=== PATIENT | female | born 1995 | race American Indian/Alaskan Native ===

== ENCOUNTER 2017-02-16 10:57 | Emergency (ER) | payer BC ==
[2017-02-16 11:10] VITALS: BP 128/68; PULSE 75; RESP 18; TEMP 97.8; O2SAT 100
--- NOTE | 2017-02-16 11:49 | ED PDOC ---
HPI: General Adult Time Seen by Provider: 02/16/17 11:13 Chief Complaint (Nursing): Weakness/Neurological Deficit Chief Complaint (Provider): left facial pain swelling History Per: Patient History/Exam Limitations: no limitations Current Symptoms Are (Timing): Still Present Severity: Moderate Additional Complaint(s): 21yo female c/o awakening w left facial pain and swelling this morning, denies dental pain, neck pain, fever or headache. Also notes right arm numbness happening intermittently for many months, denies weakness, change in vision, speech, swallowing or coordination. Works as a mergers and acquisitions banker. Past Medical History Reviewed: Historical Data, Nursing Documentation, Vital Signs Vital Signs: Last Vital Signs Temp 97.8 F 02/16/17 11:09 Pulse 75 02/16/17 11:09 Resp 18 02/16/17 11:09 BP 128/68 02/16/17 11:09 Pulse Ox 100 02/16/17 11:49 - Medical History PMH: No Chronic Diseases - Surgical History Surgical History: No Surg Hx - Family History Family History: States: Unknown Family Hx - Living Arrangements Living Arrangements: With Family - Social History Current smoker - smoking cessation education provided: No Drugs: Denies - Home Medications Home Medications: Ambulatory Orders Medication Instructions Recorded Clindamycin [Cleocin] 150 mg PO TID #21 cap 02/16/17 traMADol [Ultram] 50 mg PO TID PRN #12 tab 02/16/17 - Allergies Allergies/Adverse Reactions: Allergies Allergy/AdvReac Type Severity Reaction Status Date / Time shellfish derived Allergy RASH Verified 02/16/17 11:20 Review of Systems ROS Statement: Except As Marked, All Systems Reviewed And Found Negative Constitutional: Negative for: Fever, Chills ENT: Positive for: Other (facial pain). Negative for: Ear Pain, Nose Pain, Nose Discharge, Nose Congestion, Mouth Pain, Mouth Swelling, Throat Pain, Throat Swelling Cardiovascular: Negative for: Chest Pain, Palpitations Respiratory: Negative for: Cough, Shortness of Breath Gastrointestinal: Negative for: Nausea, Vomiting Genitourinary Female: Negative for: Dysuria, Frequency Musculoskeletal: Negative for: Neck Pain Neurological: Positive for: Numbness. Negative for: Weakness, Headache, Dizziness Psych: Negative for: Anxiety Physical Exam - Reviewed Nursing Documentation Reviewed: Yes Vital Signs Reviewed: Yes - Physical Exam Appears: Positive for: Well, Non-toxic, No Acute Distress Head Exam: Positive for: ATRAUMATIC, NORMAL INSPECTION, NORMOCEPHALIC Skin: Positive for: Normal Color, Warm, DRY Eye Exam: Positive for: EOMI, Normal appearance, PERRL ENT: Positive for: Normal ENT Inspection, Other (+facial tenderness mild edema L greater zygomatic area; teeth mild scattered decay no gingival edema or pustulence) Neck: Positive for: Normal, Painless ROM Cardiovascular/Chest: Positive for: Regular Rate, Rhythm Respiratory: Positive for: CNT, Normal Breath Sounds Gastrointestinal/Abdominal: Positive for: Normal Exam, Bowel Sounds, Soft. Negative for: Tenderness, Guarding Back: Positive for: Normal Inspection Extremity: Positive for: Normal ROM Neurologic/Psych: Positive for: Alert, community organization worker II-XII (intact), Oriented, Other (R arm sensation and strength grossly intact and symmetric to L side. gait normal. Speech fluent without dysarthria. Swallowing normal.). Negative for: Motor/Sensory Deficits - Laboratory Results Result Diagrams: 02/16/17 12:00 02/16/17 12:00 - ECG O2 Sat by Pulse Oximetry: 100 Medical Decision Making Medical Decision Making: CT report and labs reviewed w patient. She has dental followup. Initiate Abx and pain control. DCd from ED with normal swallowing, speech and respirations. Arm weakness is chronic and ongoing for years, without progression or worsening of symptoms. Encouraged to followup w neurology for further definitive testing. Disposition - Clinical Impression Clinical Impression: Facial cellulitis, Arm weakness - Patient ED Disposition Is Patient to be Admitted: No Counseled Patient/Family Regarding: Studies Performed, Diagnosis, Need For Followup, Rx Given - Disposition Referrals: Margarita Reis MD [Staff Provider] - Disposition: Routine/Home Disposition Time: 13:05 Condition: STABLE Additional Instructions: See dentist for evaluation of potential source of infection from upper left teeth. Return to ER for any worse or new symptoms, weakness, fever, pain with swallowing, pain in your jaw or any concern. Take medication as directed. See neurologist for ongoing chronic right arm weakness. Prescriptions: Clindamycin [Cleocin] 150 mg PO TID #21 cap traMADol [Ultram] 50 mg PO TID PRN #12 tab PRN Reason: Pain, Moderate (4-7) Instructions: Dental Abscess (ED), Weakness (ED)
[2017-02-16 12:11] LABS: BASO % 0.5 % (0.0-2.0); EOS % 0.6 % (0.0-4.0); HEMATOCRIT 37.6 % (34.0-47.0); LYMPH % 23.6 % (20.0-40.0); MEAN CORPUSCULAR HEMOGLOBIN 28.2 pg (27.0-31.0); MEAN CORPUSCULAR HGB CONC 33.2 g/dL (33.0-37.0); MEAN PLATELET VOLUME 10.7 fl (7.2-11.7); MONO # 0.5 K/uL (0.0-0.8); MONO % 6.4 % (0.0-10.0); NEUT # 5.9 K/uL (1.8-7.0); NEUT % 68.9 % (50.0-75.0); RED CELL DISTRIBUTION WIDTH 12.2 % (11.5-14.5); WHITE BLOOD COUNT 8.5 K/uL (4.8-10.8)
[2017-02-16 12:22] LABS: BLOOD UREA NITROGEN 11 mg/dl (7-17); CALCIUM 9.7 mg/dL (8.4-10.2); CARBON DIOXIDE 25 mmol/L (22-30); CHLORIDE 105 mmol/L (98-107); GFR AFRICAN-AMERICAN > 60; GLUCOSE,RANDOM 100 mg/dL (65-105); POTASSIUM 4.2 MMOL/L (3.6-5.0); SODIUM 142 mmol/l (132-148)
--- NOTE | 2017-02-16 13:12 | CT ---
PROCEDURE: CT HEAD WITHOUT CONTRAST. HISTORY: R arm numbness COMPARISON: None available. TECHNIQUE: Axial computed tomography images were obtained through the head/brain without intravenous contrast. Radiation dose: Total exam DLP = 1596.48 mGy-cm. This CT exam was performed using one or more of the following dose reduction techniques: Automated exposure control, adjustment of the mA and/or kV according to patient size, and/or use of iterative reconstruction technique. FINDINGS: HEMORRHAGE: No intracranial hemorrhage. BRAIN: No mass effect or edema. No atrophy or chronic microvascular ischemic changes. VENTRICLES: Unremarkable. No hydrocephalus. CALVARIUM: Unremarkable. PARANASAL SINUSES: Unremarkable as visualized. No significant inflammatory changes. MASTOID AIR CELLS: Unremarkable as visualized. No inflammatory changes. OTHER FINDINGS: None. IMPRESSION: No intracranial mass, hemorrhage or evidence of acute infarct. Unremarkable examination.
--- NOTE | 2017-02-16 13:26 | CT ---
PROCEDURE: CT MAXILLOFACIAL BONES WITHOUT CONTRAST HISTORY: L facial swelling and pain, R arm numbness COMPARISON: None TECHNIQUE: Contiguous axial CT images of the maxillofacial bones were obtained. Coronal and sagittal reformats were generated. Radiation dose: Total exam DLP = 1596.48 mGy-cm. This CT exam was performed using one or more of the following dose reduction techniques: Automated exposure control, adjustment of the mA and/or kV according to patient size, and/or use of iterative reconstruction technique. FINDINGS: NASAL BONES: Unremarkable. ORBITS: No fracture. Orbital floor intact bilaterally. No intraorbital hemorrhage. Globes are rounded and symmetric. PARANASAL SINUSES/ MASTOIDS: Clear. MAXILLA: No fracture. There is soft tissue swelling seen anterior to the left maxilla. MANDIBLE/ TEMPOROMANDIBULAR JOINTS: Unremarkable. SKULL BASE: Unremarkable. TEMPORAL BONES: Middle ears and mastoid grossly unremarkable. OTHER FINDINGS: None. IMPRESSION: Soft tissue swelling anterior left maxilla. No facial fracture. Otherwise unremarkable examination.
== END 2017-02-16 14:45 | disposition home or self-care (01) ==
LOC: H.ER 10:57
DX: R29.898 Other symptoms and signs involving the musculoskeletal system (principal); L03.211 Cellulitis of face